=== PATIENT | female | born 1955 | race Two or more races ===

== ENCOUNTER 2020-12-23 00:17 | Emergency (ER) | payer OTHER ==
[~2020-12-23] VITALS: Ht 152.4 cm; Wt 51.7 kg
[2020-12-23] MEDS ORDERED: SYNTHROID100 MCG (00:46)
[2020-12-23] MEDS ORDERED: KETO10TA2 PO (04:04)
[2020-12-23] MEDS ORDERED: NORFLEX100MG PO (04:04)
== END 2020-12-23 05:21 | disposition home or self-care (01) ==
LOC: ER 00:17
DX: M25.562 Pain in left knee (principal)